=== PATIENT | male | born 1975 | race African-American/Black ===

== ENCOUNTER 2020-01-28 15:07 | Day surgery (SDC) | payer MEDICARE, MEDICAID ==
[2020-01-28] MEDS ORDERED: Acetaminophen 500 MG TAB PO SCH (15:45)
[2020-01-28] MEDS ORDERED: diphenhydrAMINE 25 MG CAP PO SCH (15:45)
[2020-01-28 21:23] VITALS: BP 100/56; TEMP 98.4
[2020-01-29 00:27] LABS: Band 8 % (5-11); Eosinophils 1 % (0-10); Hemoglobin 7.4 g/dL (14.0-18.0); Lymphocytes 55 % (21-51); MDiff Complete? YES; Mean Corpuscular Volume 91.1 fL (78.0-98.0); Mean Platelet Volume 9.7 fL (7.4-10.4); Monocytes 1 % (0-10); Myelocyte 3 % (0-0); Neutrophil 32 % (42-75); Nucleated RBC 96 % (0); Platelet Count 122 thou/uL (130-400); Platelet Morphology Comment Appears Decreased; RBC Distribution Width 13.6 % (11.5-14.5); White Blood Cell (WBC) Count 3.3 thou/uL (4.8-10.8)
== END 2020-01-28 23:40 | disposition home or self-care (01) ==
LOC: ONC/OP 15:07 → ONC 15:09 → ONC/OP 23:40
PROVIDERS: ATTEND Internal Medicine Hematology & Oncology
PROC: 30233N1 Transfusion of Nonautologous Red Blood Cells into Peripheral Vein, Percutaneous Approach (ICD-10-PCS; principal; 2020-01-28)
DX: D64.9 Anemia, unspecified (principal); D69.6 Thrombocytopenia, unspecified; Z79.899 Other long term (current) drug therapy; Z88.1 Allergy status to other antibiotic agents
CPT/HCPCS: 36430; 82728; 85025; 85046; 86850; 86900; 86901; J1642; P9016; Q0163

== ENCOUNTER 2020-02-03 16:15 | Inpatient (IN) | payer MEDICARE, MEDICAID, OTHER ==
--- NOTE | 2020-02-03 17:50 | RAD ---
Chest AP view INDICATION: History of low blood count COMPARISON: Prior exam dated January 24, 2017 FINDINGS: Lungs: The lungs are clear Cardiac silhouette: There is persistent moderate to prominent cardiomegaly. Pulmonary vasculature: Normal Pleural spaces: No pleural effusion or pneumothorax is demonstrated. Upper abdomen: No abnormality seen. Osseous structures: Diffuse osseous sclerosis is stable. Thoracolumbar scoliosis is stable. Additional findings: There has been interval placement of a left subclavian chest wall port. Right I J catheter has been removed. IMPRESSION: No acute cardiopulmonary abnormality. Stable chronic findings as above.
[2020-02-03 18:34] LABS: INR-International Normal Ratio 1.8; PTT 38.5 sec (22.9-36.1); Prothrombin Time 21.2 sec (12.0-14.7)
[2020-02-03 18:44] LABS: Hemoglobin 6.6 g/dL (14.0-18.0); Mean Corpuscular HGB CONC 31.7 g/dL (32.0-36.0); Mean Corpuscular Hemoglobin 29.1 pg (27.0-31.0); Mean Corpuscular Volume 91.7 fL (78.0-98.0); Mean Platelet Volume 11.3 fL (7.4-10.4); Platelet Count 102 thou/uL (130-400); RBC Distribution Width 14.5 % (11.5-14.5); Red Blood Cell (RBC) Count 2.26 mill/uL (4.70-6.10)
[2020-02-03 18:49] LABS: ALT (SGPT) 32 U/L (8-55); AST (SGOT) 404 U/L (5-34); Alkaline Phosphatase 149 U/L (40-110); Anion Gap 20 mmol/L (10-20); BUN (Urea Nitrogen) 37 mg/dL (8.9-20.6); Bilirubin, Total 2.5 mg/dL (0.2-1.2); CK (CPK) 277 U/L (30-200); Calc. Creatinine Clearance 0 mL/min (70-130); Calcium 7.9 mg/dL (7.8-10.44); Carbon Dioxide 14 mmol/L (22-29); Chloride 104 mmol/L (98-107); Estimated GFR-MDRD 21; Globulin 3.4 g/dL (2.4-3.5); Glucose 84 mg/dL (70-105); Lipase 54 U/L (8-78); Protein, Total 6.4 g/dL (6.0-8.3); Sodium 134 mmol/L (136-145)
[2020-02-03 19:09] LABS: White Blood Cell (WBC) Count 3.8 thou/uL (4.8-10.8)
[2020-02-03 19:14] LABS: Band 13 % (5-11); Differential Comment Plasma-like Cell(s); Large Platelets SLIGHT; Lymphocytes 47 % (21-51); MDiff Complete? YES; Metamyelocyte 1 % (0-0); Monocytes 8 % (0-10); Myelocyte 2 % (0-0); Neutrophil 23 % (42-75); Nucleated RBC 86 % (0); Ovalocytes SLIGHT = 2-5 cells (100X) (0-1/hpf); Platelet Morphology Comment Appears Decreased; Polychromasia SLIGHT = 2-3 cells (100X) (0-2/hpf); Reactive Lymphocytes 4 % (0-10); Reflex for Review?? NO; Schistocytes SLIGHT = 2-5 cells (100X) (0-1/hpf); Sickle Cells SLIGHT = 1-5 cells (100X) (None Seen)
[2020-02-03] MEDS ORDERED: Fentanyl 100 MCG/2 ML VIAL ONE (19:26)
--- NOTE | 2020-02-03 19:42 | PDOC.FPRHP ---
- History of Present Illness Chief Complaint: Symptomatic Anemia History of Present Illness: Licha Jimenez is a 45 year old M with a PMH of sickle cell disease who presented to the ED for decreasing blood counts. He was recently diagnosed with parvovirus. He has needed 3 blood transfusions over the last month. His lowest his hemoglobin has been getting is around 5.5. States that he has been getting out of breath and having no energy. Endorsed joint pains. Denies any fever, chills, headaches, chest pain, PND, orthopnea, palpitations, muscle pain , n/v, abdominal pain. States that what he is feeling now is not what his previous sickle cell crises have felt like. States that he has small pain in right knee and left hip but it is not severe. These pains have been present for the last two weeks. He has a port placed for his sickle cell disease due to difficult access. Last hospitalization from pain crisis was almost 3 years ago. He has been adherent to his medication regimen for sickle cell disease. States that he has not had an appetite for the last 1.5 wks and he has put himself on a liquid diet. He was taken off hydroxyurea because it was making his WBC count low. His capsule machine operator has been monitoring those counts. Customs Brokerage Manager: Dr. Dinh ED Course: transfused 2 U pRBC's, 2 L NS - Allergies/Adverse Reactions Allergies Allergy/AdvReac Type Severity Reaction Status Date / Time clindamycin Allergy Verified 02/03/20 21:44 - Home Medications Medication Instructions Recorded Confirmed Type Folic Acid [Folvite] 1 mg PO DAILY 09/03/13 02/03/20 History Morphine Sulfate [Morphine Sulfate 15 mg PO Q1HR PRN 09/03/13 02/03/20 History ER] Morphine Sulfate [Morphine Sulfate 60 mg PO Q8HR 09/03/13 02/03/20 History ER] Pantoprazole [Protonix] 40 mg PO DAILY 05/02/14 02/03/20 History Losartan [Cozaar] 25 mg PO DAILY 02/03/20 02/03/20 History - History PMHx: Sickle cell disease, CHF, GERD, recent diagnosis of parvovirus, hx of SBO PSHx: Cholecystectomy, appendectomy, hernia repair, ex lap at 11 yrs of age FHx: DM2, HTN Social: denies alcohol, smoking, drug use, with children, live in [facility] on vaccines - Review of Systems General: reports: fatigue. denies: fever/chills, weight/appetite/sleep changes Eyes: denies: eye pain, vision changes ENT: denies: nasal congestion, rhinorrhea Respiratory: reports: shortness of breath, exercise intolerance. denies: cough , congestion Cardiovascular: denies: chest pain, palpitation, edema, paroxysmal nocturnal dyspnea, orthopnea Gastrointestinal: denies: nausea, vomiting, diarrhea, abdominal pain, GI bleeding Genitourinary: denies: dysuria, polyuria Skin: denies: rashes, lesions Musculoskeletal: reports: pain, tenderness. denies: stiffness, swelling Neurological: denies: syncope, seizure, weakness Psychological: denies: anxiety, depression - Vital signs BP: 100/58 HR: 114 RR: 18 Tmax: 99.9 Pox: 94% on RA Wt: 82.5 kg - Physical Exam Constitutional: NAD, awake, alert and oriented, well developed HEENT: normocephalic and atraumatic, PERRLA, EOMI, grossly normal vision, grossly normal hearing, MMM Neck: supple, FROM Heart: normal S1/S2, no murmurs/rubs/gallops, pulses present -Heart: tachycardic, regular rhythm Lungs: CTAB, no respiratory distress, good air movement, no rales/rhonchi, no wheezing, no retractions Abdomen: soft, non-tender, bowel sounds present, no masses/distention Musculoskeletal: normal structure, normal tone, ROM grossly normal Neurological: no focal deficit, CN II-XII intact Skin: no rash/lesions, good turgor Heme/Lymphatic: no unusual bruising or bleeding, no purpura, no petechia Psychiatric: normal mood and affect, good judgment and insight, intact recent and remote memory FMR H&P: Results - Labs Result Diagrams: 02/05/20 04:30 02/05/20 03:30 Lab results: WBC 3.8 thou/uL (4.8-10.8) L 02/03/20 17:40 Hgb 6.6 g/dL (14.0-18.0) L 02/03/20 17:40 Hct 20.7 % (42.0-52.0) L 02/03/20 17:40 MCV 91.7 fL (78.0-98.0) 02/03/20 17:40 Plt Count 102 thou/uL (130-400) L 02/03/20 17:40 Band Neuts % (Manual) 13 % (5-11) H 02/03/20 17:40 Sodium 134 mmol/L (136-145) L 02/03/20 16:25 Potassium 4.0 mmol/L (3.5-5.1) 02/03/20 16:25 Chloride 104 mmol/L (98-107) 02/03/20 16:25 Carbon Dioxide 14 mmol/L (22-29) L 02/03/20 16:25 BUN 37 mg/dL (8.9-20.6) H 02/03/20 16:25 Creatinine 3.85 mg/dL (0.7-1.3) H 02/03/20 16:25 Glucose 84 mg/dL (70-105) 02/03/20 16:25 Lactic Acid 3.0 mmol/L (0.5-2.2) H 02/03/20 16:33 Calcium 7.9 mg/dL (7.8-10.44) 02/03/20 16:25 Total Bilirubin 2.5 mg/dL (0.2-1.2) H 02/03/20 16:25 AST 404 U/L (5-34) H 02/03/20 16:25 ALT 32 U/L (8-55) 02/03/20 16:25 Alkaline Phosphatase 149 U/L (40-110) H 02/03/20 16:25 Creatine Kinase 277 U/L (30-200) H 02/03/20 16:25 B-Natriuretic Peptide 65.7 pg/mL (0-100) 02/03/20 17:40 Serum Total Protein 6.4 g/dL (6.0-8.3) 02/03/20 16:25 Albumin 3.0 g/dL (3.5-5.0) L 02/03/20 16:25 Lipase 54 U/L (8-78) 02/03/20 16:25 - EKG Interpretation EKG: Sinus tachycardia, QT 316 - Radiology Interpretation Chest x-ray Status: image reviewed by me, report reviewed by me Additional comment: no acute abnormalities FMR H&P: A/P - Problem List (1) Thrombocytopenia Current Visit: Yes Status: Acute Code(s): D69.6 - THROMBOCYTOPENIA, UNSPECIFIED (2) Acute kidney injury Current Visit: Yes Status: Acute Code(s): N17.9 - ACUTE KIDNEY FAILURE, UNSPECIFIED (3) Lactic acidosis Current Visit: Yes Status: Acute Code(s): E87.2 - ACIDOSIS (4) Parvovirus B19 infection Current Visit: Yes Status: Acute Code(s): B34.3 - PARVOVIRUS INFECTION, UNSPECIFIED (5) Pancytopenia Current Visit: No Status: Acute Code(s): D61.818 - OTHER PANCYTOPENIA (6) Sickle cell disease Current Visit: No Status: Chronic Code(s): D57.1 - SICKLE-CELL DISEASE WITHOUT CRISIS Qualifiers: (7) Symptomatic anemia Current Visit: Yes Status: Acute Code(s): D64.9 - ANEMIA, UNSPECIFIED - Plan Pt is a 45 yo male who presents with symptomatic anemia: # Symptomatic Anemia in the setting of parvovirus, sickle cell - transfused 2 U on 02/02, pending repeat H/H - repeat am CBC - Discuss case with Dr. Dinh in the am - monitor BP's # Parvovirus - discuss case with Dr. Dinh # BRENDA on CKD Unsure pt's baseline. Creatinine 3.85. Monitor for resolution with fluids. # Thrombocytopenia - monitor # Leukopenia - monitor, pt taken off of hydroxurea due to low WBC # Elevated Bili, AST - likely secondary to sickle cell disease # Arthalgias - likely secondary to parvovirus. # GERD - continue home meds # Hx of HF - monitor for decompensation w/ fluids, transfusion - continue home meds Dispo: Admit to inpt IMCU for soft BP's in setting of symptomatic anemia Code: Full Diet: HH VTE: SCDs Fluids: SL FMR H&P: Upper Level - Plan Date/Time: 02/03/201938 Silverio Herrera MD, have evaluated this patient and agree with findings/plan as outlined by chemist intern resident. Pertinent changes/additions are listed here. Licha Jimenez is a 45 year old M with a PMH of SCD who presented to the ED for decreasing blood counts, decreased energy and VIDES. Recently diagnosed with parvovirus by Customs Brokerage Manager, Dr. Dinh and has had 3 blood transfusions over the last month. States that he is having some joint pain but states that it is normally far more painful when he is having a crisis, last hospitalization for crisis was about 3 years ago. It the ED, his hg was 6.6, WBC 3.8, Platelets 102. CXR was negative. Lactic acid 3.0. CK 277. In the ED, BP was 100/58, HR 114, RR 18, O2 sat 96 on RA. He was given 2 U pRBC and 2 L NS in ED. Pt is being admitted for symptomatic anemia in setting of SCD and parvovirus. Pt will get 2 U pRBC and we will trend H/H and BPs. Will notify Dr. Dinh in the AM. Cr was elevated at 3.85. Will continue to monitor after transfusions and fluids given. Will work up further if no improvement. Will continue home pain regimen with IV morphine for breakthrough pain. Please see chemist intern note above for full H&P, which I have reviewed and agree with. Addendum - Attending - Attending Attestation Date/Time: 02/05/20 [id number] I personally evaluated the patient and discussed the management with Dr. Machuca on admission 02/03/20. I agree with the History, Examination, Assessment and Plan documented above with any addition or exceptions noted below. 45 y.o BM with h/o Sickle cell disease, CHF, GERD, recent diagnosis of parvovirus, hx of SBO here with H&H drop with hypotension and tachycardia, responsive to IVF and transfusion of PRBC's. SBP's were in 80's on presentation and salud to 100's after 1UPRBC's, HR improved from 130's to 110's. Will transfuse second unit, hydrate generously and provide analgesia for moderate MS pain in back and thighs. Pt. has had complicated course recently, requiring multiple transfusions. Dr. Dinh is in the process of evaluating, will consult in a.m.
[2020-02-03 19:55] LABS: Bacteria/HPF None Seen HPF (None Seen); Bilirubin 1+ (Negative); Blood, Urine Negative (Negative); Clarity Turbid (Clear); Glucose, Urine (Dipstick) Normal (Negative); Leukocyte Negative Leu/uL (Negative); Nitrite Negative (Negative); Protein, Urine (Dipstick) 70 mg/dL (Neg-Trace); RBC/HPF 0-3 HPF (0-3); Urobilinogen 12 mg/dL (Less than 2)
[2020-02-03] MEDS ORDERED: Ondansetron ODT 4 MG TAB SL PRN (21:17)
[2020-02-03] MEDS ORDERED: Ondansetron PF 4 MG/2 ML Vial IVP PRN (21:17)
[2020-02-03 21:37] VITALS: BMI 30.7
[2020-02-03 22:31] LABS: Lactic Acid 2.1 mmol/L (0.5-2.2)
[2020-02-03] MEDS: Acetaminophen 325 MG TAB PO PRN (22:46)
[2020-02-03] MEDS ORDERED: MORPHINE SULFATE 15 MG PO PRN (23:45)
[2020-02-04] MEDS: Morphine 4 MG/ML VIAL SLOW IVP PRN ×5 (01:12→22:53)
[2020-02-04] MEDS: Morphine ER 30 MG TAB PO SCH ×3 (05:06→21:43)
[2020-02-04 05:42] LABS: Anion Gap 14 mmol/L (10-20); BUN (Urea Nitrogen) 39 mg/dL (8.9-20.6); Calc. Creatinine Clearance 35 mL/min (70-130); Calcium 7.7 mg/dL (7.8-10.44); Carbon Dioxide 20 mmol/L (22-29); Chloride 105 mmol/L (98-107); Estimated GFR-MDRD 25; Glucose 90 mg/dL (70-105); Potassium 3.8 mmol/L (3.5-5.1); Sodium 135 mmol/L (136-145)
--- NOTE | 2020-02-04 05:54 | PDOC.FM ---
- Subjective Subjective: Pt notes sacral and right hip pain this morning. States not as severe as he has had in the past. Feels less SOB and fatigued since transfusion but does still note some mild dyspnea. Requested that I reach out to Dr. Dinh. Not currently on any sickle cell regimen due to previous complications on hydroxyurea. - Objective Vital Signs & Weight: Vital Signs (12 hours) Temp Pulse Resp BP Pulse Ox 02/04/20 03:35 99.4 F 02/04/20 01:07 98.2 F 02/03/20 23:46 98.7 F 02/03/20 22:50 98.6 F 119 H 18 103/56 L 100 02/03/20 21:35 98.4 F 02/03/20 21:30 100 Weight Weight 86.239 kg Most Recent Monitor Data Heart Rate from ECG 105 NIBP 97/61 NIBP BP-Mean 73 Respiration from ECG 26 SpO2 100 I&O: 02/02/20 02/03/20 02/04/20 06:59 06:59 06:59 Intake Total 830 Output Total 250 Balance 580 Result Diagrams: 02/05/20 04:30 02/05/20 08:47 Phys Exam - Physical Examination Constitutional: NAD HEENT: moist MMs, sclera anicteric Neck: full ROM Respiratory: clear to auscultation bilateral (short inspiratory phase) Cardiovascular: RRR Gastrointestinal: soft, non-tender liver palpable below Musculoskeletal: no edema, pulses present Neurological: non-focal, moves all 4 limbs Psychiatric: normal affect, A&O x 3 Skin: no rash Dx/Plan - Plan Plan: Symptomatic Anemia in the setting of parvovirus, sickle cell - Hgb on arrival was 6.6 and was transfused 2 u PRBC last night - Repeat this morning was 8.4 - Retic index hypoproliferative at 0.26 - Will continue to trend - Discuss case with Dr. Dinh in the am - Monitor BP's - Was parvovirus positive on IgG - Concern for chronic parvo, will attempt parvo PCR test - If pt has active parvo infection may benefit from IVIG Pancytopenia - Likely 2/2 bone marrow suppression Pre-transfusion levels - WBC: 3.8 - Hgb: 6.6 - Plt: 102 - Will continue to monitor - Likely bone marrow suppression 2/2 to parvovirus and chronic consumption from sickle cell - Had marrow tap this year that was non-specific - In setting of pancytopenia and hypoproliferation there is concern for development of aplastic crisis BRENDA vs CKD - Last known baseline Cr: 1.1 in 2018 - Cr trend: 3.85 -> 3.27 - 2L in ED and 2 u PRBC, IVF LR @ 120 Thrombocytopenia - Will need to r/o DIC - Fibrinogen and D-dimer - Monitor as above Leukopenia - Monitor as above, pt taken off of hydroxurea due to low WBC Elevated Bili, AST - Likely secondary to sickle cell disease - chronic RBC lysis Arthalgias - Likely secondary to parvovirus. GERD - continue home meds Hx of HF - Monitor for volume overload associated with fluids/transfusions - Continue home meds Code: Full Diet: HH VTE: SCDs Fluids: SL Dispo: IMCU inpt for blood count monitoring and borderline blood pressures on admission. Will trend labs and replace as cell counts indicate. Continue further workup to rule out other causes or newly developing problems associated with current pancytopenia. ELOS >48hr Addendum - Attending - Attending Attestation Date/Time: 02/05/201936 I personally evaluated the patient and discussed the management with Dr. Morris on 02/03 I agree with the History, Examination, Assessment and Plan documented above with any addition or exceptions noted below- Patient without complaints. Pain well controlled. Afebrile VSS. A/P: 1) Symptomatic anemia- continue transfusion ; recheck H/H after transfusion. Hematology consulted for further recommendations. 2) Sickle cell anemia with mild crisis- continue IVF and blood transfusions. 3) BRENDA with CKD - continue to monitor.
[2020-02-04 06:31] LABS: Band 7 % (5-11); Eosinophils 2 % (0-10); Hemoglobin 8.4 g/dL (14.0-18.0); Hypochromia SLIGHT = 6-15 cells (100X) (0-5/hpf); Lymphocytes 48 % (21-51); MDiff Complete? YES; Mean Corpuscular HGB CONC 34.1 g/dL (32.0-36.0); Mean Corpuscular Hemoglobin 30.2 pg (27.0-31.0); Mean Corpuscular Volume 88.4 fL (78.0-98.0); Mean Platelet Volume 12.2 fL (7.4-10.4); Microcytosis SLIGHT = 6-15 cells (100X) (0-5/hpf); Monocytes 10 % (0-10); Neutrophil 33 % (42-75); Nucleated RBC 51 % (0); Platelet Count 90 thou/uL (130-400); Platelet Morphology Comment Appears Decreased; RBC Distribution Width 13.8 % (11.5-14.5); Red Blood Cell (RBC) Count 2.77 mill/uL (4.70-6.10); White Blood Cell (WBC) Count 7.1 thou/uL (4.8-10.8)
[2020-02-04 07:25] LABS: Reticulocyte Count 0.9 % (0.5-1.5)
[2020-02-04 07:55] LABS: ALT (SGPT) 28 U/L (8-55); AST (SGOT) 302 U/L (5-34); Albumin 2.8 g/dL (3.5-5.0); Alkaline Phosphatase 134 U/L (40-110); Bilirubin, Direct 1.9 mg/dL (0.1-0.3); Bilirubin, Total 2.8 mg/dL (0.2-1.2); Protein, Total 6.1 g/dL (6.0-8.3)
[2020-02-04] MEDS ORDERED: Folic Acid 1 MG TAB PO SCH (09:00)
[2020-02-04] MEDS ORDERED: Losartan 25 MG TAB PO SCH (09:00)
[2020-02-04] MEDS: Lactated Ringer's 1,000 ML IV SCH ×2 (11:01→18:20)
[2020-02-04] MEDS: Acetaminophen 325 MG TAB PO PRN (15:31)
[2020-02-04 16:01] LABS: Reference Lab Name LABCORP
[2020-02-04 16:02] LABS: Ref Lab Test Ordered PARVOVIRUS PCR
[2020-02-04] MEDS ORDERED: Vancomycin HCl 1 GM in Sodium Chloride 0.9% 250 ML 250 ML IVPB SCH (17:30)
[2020-02-04] MEDS ORDERED: Lactated Ringer's 1,000 ML IV SCH (17:45)
--- NOTE | 2020-02-04 18:12 | CON ---
DATE OF CONSULTATION: REASON FOR CONSULTATION: Sickle cell anemia. HISTORY OF PRESENT ILLNESS: Mr. Jimenez is a pleasant 45-year-old gentleman with a history of sickle cell anemia. He is followed by Dr. Dinh in the office. He is currently on hydroxyurea 1000 mg b.i.d. He has also intermittently been on Jadenu for elevated ferritin. He was seen by Dr. Dinh last week on January 27 for followup after recent hospitalization. He was transfused a total of 5 units during that hospitalization in December. He had had a CT of the abdomen that showed hepatomegaly and nonspecific upper abdominal adenopathy. December studies also showed increased transaminases and a negative hepatitis panel. He had a CBC drawn in our clinic, which showed hemoglobin of 5.5 with a negligible retic count. He was transfused. His parvovirus serologies were positive for IgG and negative for IgM. His ferritin was 2800. He was to follow up next week, but began to have increasing shortness of breath and weakness. He had joint pain, but no fever, chills or chest pain. He presented to the emergency room for evaluation. His hemoglobin was 6.6 on admission. He was transfused 2 units. His retic count again was 0.9. He is given IV fluids, oxygen, and pain medication. He also had an elevated creatinine of 3.27. He is feeling somewhat better, but continues to be extremely weak. PAST MEDICAL HISTORY: 1. Sickle cell anemia. 2. Congestive heart failure. 3. GERD. 4. Recent diagnosis of parvovirus. PAST SURGICAL HISTORY: 1. Cholecystectomy. 2. Appendectomy. 3. Hernia repair. ALLERGIES: NO KNOWN DRUG ALLERGIES. HOME MEDICATIONS: 1. Folic acid. 2. Hydroxyurea. 3. Losartan. 4. Morphine 15 mg IR. 5. Protonix. FAMILY HISTORY: He has 2 children, both with sickle cell trait. SOCIAL HISTORY: Single. Lives with his mother, 2 children. No alcohol, tobacco or illicit drug use. REVIEW OF SYSTEMS: Positive for fatigue and occasional shortness of breath, otherwise negative. PHYSICAL EXAMINATION: VITAL SIGNS: Temperature 99.0, heart rate 116, blood pressure 108/66, and respiratory rate 25. He is 100% on 2 L. GENERAL: A well-developed, well-nourished male, in no acute distress. HEENT: Normocephalic and atraumatic. Pupils are equal and reactive to light. NECK: Supple. CV: Regular rate and rhythm. He is tachycardic. LUNGS: Clear. ABDOMEN: He has right upper quadrant fullness secondary to hepatomegaly. EXTREMITIES: No clubbing or cyanosis. SKIN: No rash. NEUROLOGICAL: Nonfocal. PERTINENT LABORATORY DATA AND X-RAYS: Current WBCs 7.1, hemoglobin 8.4, hematocrit 24.5, platelet count 90,000, 33% neutrophils, and 48% lymphocytes. PT is 21.2, INR is 1.8, and PTT 38.5. Sodium is 135, potassium is 3.8, chloride is 105, CO2 is 20, BUN is 39, creatinine is 3.27, lactic acid is 2.1, and calcium 7.7. Bilirubin 2.8, AST is 302, ALT is 28, and alk phos is 134. Ferritin is 7000. Serum total protein is 6.1, albumin 2.3, and globulin 2.8. ASSESSMENT: 1. Sickle cell anemia with increased requirement for transfusion. 2. New diagnosis of parvovirus. 3. Hepatomegaly. DISCUSSION: The patient has been transfused 2 units and his hemoglobin has improved. His retic count remains negligible. He has been started on IV fluids, oxygen and pain medicine for acute pain crisis. Parvovirus PCR has been ordered. The patient will receive IVIG to improve his symptoms. He will likely start Jadenu in the outpatient setting as his ferritin is continuing to climb due to his increased need for transfusions. Case has been discussed in detail with Dr. Dinh. Thank you for the consult. Job ID: [id number]
[2020-02-04 19:13] LABS: Creatinine, Urine 203.13 mg/dL (63-166)
[2020-02-04] MEDS ORDERED: Cefepime 2 GM in Sodium Chloride 0.9% 100 ML IVPB SCH (20:00)
[2020-02-04 20:03] LABS: Hemoglobin 9.2 g/dL (14.0-18.0)
[2020-02-04] MEDS ORDERED: Vancomycin HCl 1.75 GM in Sodium Chloride 0.9% 500 ML IVPB SCH (21:00)
--- NOTE | 2020-02-05 00:53 | CON ---
DATE OF CONSULTATION: 02/04/2020 REASON FOR CONSULTATION: Possible parvovirus infection. HISTORY OF PRESENT ILLNESS: A 45-year-old, who is known to me from prior visit. I saw him twice in 2016. The first time was in December when he presented with a history of sickle cell disease, at that time, on hydroxyurea. He also had iron overload preventive treatment and he was still having crisis on a regular basis, sometimes requiring blood transfusion. He developed fever and chest CT showed multiple areas of infiltrates, somewhat wedge-shaped densities as well, and he had Klaudia isolated from the port. The port was exchanged and I have not seen him since. Now, he presents with weakness, tachycardia, worsening anemia. He does not have headaches. He has mild dyspnea but no cough. No chest pain. He has pain in the right sacroiliac region. No abdominal pain. He is voiding without difficulty. No diarrhea. No bleeding. He has some moderate pain in the right knee and the left hip. Those are usual areas when he has sickle cell crisis. PAST MEDICAL HISTORY: Sickle cell anemia with multiple crisis; intolerance to hydroxyurea due to neutropenia; port access infection, which led to port replacement, infection was due to Klaudia species. He has had appendectomy and cholecystectomy in the past. Has had small bowel obstruction due to adhesions. SOCIAL HISTORY: Lives in [place]. Does not smoke. Drinks rarely. FAMILY HISTORY: Not significant. MEDICATION LIST: At the moment, he is on, 1. Folvite. 2. Electrolyte solution. 3. Cozaar. 4. Pain medication. PHYSICAL EXAMINATION: VITAL SIGNS: Show T-max 100.8, blood pressure 114/68, pulse 128, respirations 21 to 35, and O2 saturation is 100%. GENERAL: He appears chronically ill. He is oriented, but a little bit drowsy. The port site is accessed, but there are no inflammatory changes. He is voiding in the toilet. He has no lymphadenopathy. No skin lesions. HEENT: His ocular movements are conjugate. Pale conjunctivae. Oral cavity is not remarkable. NECK: Supple. LUNGS: Symmetric. Clear breath sounds. HEART: S1 and S2. Regular rate. No S3 or S4. ABDOMEN: Soft, not distended or tender. No ascites. No bladder distention. MUSCULOSKELETAL: He has some tenderness in the right SI region. The right knee is tender but not swollen. There is no effusion noted. The left hip has good range of motion. He is oriented. Follows commands. Plantar responses are flexor. No edema. LABORATORY STUDIES: White cell count is 3.8 and now 7.1; hemoglobin was 6.6 and now 8.4, probably after transfusion; and the platelets were at 102 and now 90,000, differential with 23% neutrophils, 13% bands, the bands are down to 7, myelocytes were 2%, metamyelocytes 1%, nucleated RBCs were 86 and 51. INR 1.8. Creatinine in 2018 was 1.1 and now it is up to 3.85, it is not clear how old this deterioration in renal function is. His creatinine in [facility] in [place] was 1.08 on 01/07/2020. The hemoglobin has ranged from 6.6 to 7.7 in December 2019. So, there is a clear deterioration of his renal function, which appears to be acute. His ferritin is very high at 7000, bilirubin 1.9, AST 302. Two port samples for blood cultures are pending at the moment and imaging includes just the chest x-ray with no acute cardiopulmonary abnormality noted. The patient had parvovirus IgG positive in 2017 and he had repeat parvovirus IgM negative and IgG positive on 01/02/2020. ASSESSMENT: 1. Sickle cell anemia. 2. Iron overload. 3. Possible chronic liver disease due to iron overload. 4. Inability to take hydroxyurea due to neutropenia. 5. Worsening anemia and concern with Parvovirus viral infection. DISCUSSION: The patient has IgG positive but negative IgM parvovirus antibodies. This is more consistent with prior resolved infection rather than chronic Parvovirus infection. Prevalence of Parvovirus IgG antibodies in the general populations varies from 15% in children to 30-60% in adults and up to 85% in the elderly population. We will go ahead and submit parvovirus DNA PCR. He could be colonized again and the port might explain his clinical deterioration. He does have renal insufficiency, may be septic. I would advise broad-spectrum antimicrobial therapy until we clarify this situation. Job ID: [id number] [facility]ITALNickolas
[2020-02-05] MEDS ORDERED: Heparin 5,000 UNITS/ML VIAL SC SCH ×2 (01:15→09:00)
[2020-02-05] MEDS: Lactated Ringer's 1,000 ML IV SCH (01:39)
[2020-02-05] MEDS ORDERED: Lactated Ringer's 500 ML IV SCH (01:45)
[2020-02-05 04:13] VITALS: TEMP 98.6
[2020-02-05 04:56] LABS: Anion Gap 28 mmol/L (10-20); BUN (Urea Nitrogen) 52 mg/dL (8.9-20.6); Calc. Creatinine Clearance 25 mL/min (70-130); Calcium 7.8 mg/dL (7.8-10.44); Chloride 106 mmol/L (98-107); Estimated GFR-MDRD 17; Glucose 68 mg/dL (70-105); Potassium 5.6 mmol/L (3.5-5.1); Sodium 136 mmol/L (136-145)
[2020-02-05 05:01] LABS: Carbon Dioxide 8 mmol/L (22-29)
[2020-02-05 05:12] LABS: Actual Bicarbonate (HCO3a) 5.7 mEq/L (22-28); Base Excess (BEa) -22.5 mEq/L (-2.0 to +3.0); Calcium, Ionized (arterial) 1.07 mmol/L (1.12-1.30); Carboxyhemoglobin (COHb) 1.4 gm% (0.0-3.0); Hemoglobin (Hb) 7.1 g/dL (14.0-18.0); O2 Tension (PaO2), arterial 107.4 mmHg (80.0-100.0); Potassium - ABG Lab 5.92 mmol/L (3.70-5.30)
[2020-02-05 05:14] LABS: Band 4 % (5-11); Eosinophils 1 % (0-10); Hemoglobin 7.9 g/dL (14.0-18.0); Lymphocytes 71 % (21-51); MDiff Complete? YES; Mean Corpuscular HGB CONC 33.2 g/dL (32.0-36.0); Mean Corpuscular Hemoglobin 30.8 pg (27.0-31.0); Mean Corpuscular Volume 92.5 fL (78.0-98.0); Mean Platelet Volume 7.1 fL (7.4-10.4); Microcytosis SLIGHT = 6-15 cells (100X) (0-5/hpf); Monocytes 7 % (0-10); Neutrophil 11 % (42-75); Nucleated RBC 11 % (0); Platelet Count 67 thou/uL (130-400); Platelet Morphology Comment Appears Decreased; RBC Distribution Width 14.5 % (11.5-14.5); Reactive Lymphocytes 6 % (0-10); Red Blood Cell (RBC) Count 2.56 mill/uL (4.70-6.10); White Blood Cell (WBC) Count 18.8 thou/uL (4.8-10.8)
[2020-02-05 05:15] LABS: CO2 Tension 19.8 mmHg (35.0-45.0); pH, Arterial 7.08 (7.35-7.45)
[2020-02-05 05:16] LABS: Puncture Site RRA
[2020-02-05] MEDS ORDERED: Sodium Bicarb 50 MEQ/50 ML Abboject 8.4% SYRINGE ONE ×2 (05:31→11:16)
[2020-02-05 05:56] LABS: Lactic Acid 14.8 mmol/L (0.5-2.2)
[2020-02-05] MEDS ORDERED: Sodium Chloride 0.9% 1,000 ML IV SCH (06:00)
[2020-02-05] MEDS ORDERED: Lactated Ringer's 1,000 ML IV SCH (06:00)
[2020-02-05 06:04] LABS: Troponin I 1.154 ng/mL (< 0.028)
--- NOTE | 2020-02-05 06:25 | PDOC.FM ---
- Subjective Subjective: Pt was awake but listless, gargled respirations, not following commands. Unable to obtain interval hx from pt. Last night had developed hypotension, worsening sickel cell pain, abdominal pain, and had a bloody bm per nursing staff. His tachycardia and tachypnea worsened and he developed hyoptension. ABG showed severe lactic metabolic acidosis. So he received 2.5L bolus and an amp of bicarb. Please see event note for remaining interval hx of code blue that ensued. - Objective Vital Signs & Weight: Vital Signs (12 hours) Temp Pulse Ox 02/05/20 04:12 98.6 F 02/04/20 23:37 98.5 F 02/04/20 23:00 95 02/04/20 20:00 95 02/04/20 19:12 99.8 F H Weight Admit Weight 86.239 kg Weight 86.239 kg Most Recent Monitor Data Heart Rate from ECG 140 NIBP 104/46 NIBP BP-Mean 65 Respiration from ECG 35 SpO2 95 I&O: 02/03/20 02/04/20 02/05/20 06:59 06:59 06:59 Intake Total 830 2183 Output Total 250 400 Balance 580 1783 Result Diagrams: 02/05/20 04:30 02/05/20 08:47 Phys Exam - Physical Examination Listless HEENT: moist MMs Not tracking Gasping respirations, tachypneic, poor airway protection sinus tachycardia Not following commands, not withdrawaling from pain, eyes open Dx/Plan - Plan Plan: Symptomatic Anemia in the setting of parvovirus, sickle cell - Developed severe hypotension requiring code blue, intubation, art line, pressers - 2 additional units PRBC ordered - Was parvovirus positive on IgG - Parvo PCR send out pending - Per nursing pt had bloody BM last night - Consider GI consult, repeat coags, may need replacement - If developing severe sickle cell crisis pt may necessitate exchange transfusion - Will discuss with oncology and pulm regarding above Sickle Cell Crisis - As above - Potassium acutely elevated likely from decreased renal function and cell lysis - Lactic acid 14 last night - Will discuss with consultants as above Pancytopenia - Likely 2/2 bone marrow suppression - Likely bone marrow suppression 2/2 to parvovirus and acute sickle crisis Lactic Acid Metabolic Acidosis - Concern for Worsening Sickle Cell Crisis - ABG last night: pH 7.08 \ pCO2 19.8 \ pO2 107.4 \ bicarb 5.7 - Given 5,000 heparin due to concern for SCD crisis - Bolus fluids and bicarb BRENDA - Last known baseline Cr: 1.1 in 2018 - Cr trend: 3.85 -> 3.27 -> 4.61 - IVF LR @ 120, received 1.5L bolus last night, receiving 1L bolus currently - Potassium also rising to 5.6 this morning - Will consult Nephro, Dr. Mckeon, appreciate recs Leukopenia - Dr. Gillis, ID, consulted - Started cefepime and vanc - Pt has hx of port infection with [place] - Cultures pending Elevated Bili, AST - Likely secondary to sickle cell disease - chronic RBC lysis Elevated Ferritin - Likely due to recent hx of recurrent transfusions Arthalgias - Likely secondary to parvovirus. GERD - continue home meds Hx of HF - Monitor for volume overload associated with fluids/transfusions - Continue home meds Code: Full Diet: HH VTE: SCDs Fluids: SL Dispo: CCU inpt. Pt is intubated with art line for MAP monitoring during pressure support. Will discuss need for exchange transfusion with onc and crit care. Consulting nephro regarding worsening of acute renal insufficiency. Addendum - Attending - Attending Attestation Date/Time: 02/05/201940 I personally evaluated the patient and discussed the management with Dr. Morris I agree with the History, Examination, Assessment and Plan documented above with any addition or exceptions noted below- See brief progress note from later in the morning.
[2020-02-05 06:26] LABS: Magnesium 2.2 mg/dL (1.6-2.6); Phosphorus 7.3 mg/dL (2.3-4.7)
--- NOTE | 2020-02-05 06:49 | PDOC.EVN ---
Event Note - Event Note Event Note: Called to pt.'s bedside by residents reporting pt. became acutely distressed with complaint of abdominal pain with hypotension, persistent tachycardia, tachypnea with a reported episode of hematochezia. Pt. had been in NAD with mild pain controlled with analgesic earlier, sitting at bedside and talking on telephone, then had an acute change. ABG--7.08/5.7/107.4/19.8/95.9% on 2LNC 136 5.6 106 8
--- NOTE | 2020-02-05 07:43 | RAD ---
EXAM: Single view of the chest HISTORY: Tachypnea COMPARISON: 02/03/2020 FINDINGS: Single view of the chest shows an enlarged but stable cardiomediastinal silhouette. The Me diport is unchanged in position. There is no evidence of consolidation, mass, or pleural effusion. The bones are unremarkable. IMPRESSION: No evidence of acute cardiopulmonary disease
--- NOTE | 2020-02-05 07:43 | RAD ---
EXAM: Single view of the abdomen HISTORY: Abdominal pain COMPARISON: None FINDINGS: Single view of the abdomen shows a nonspecific, nonobstructive bowel gas pattern. No suspi cious calcifications are seen. The bones are unremarkable. IMPRESSION: Unremarkable exam
[2020-02-05 08:01] LABS: Actual Bicarbonate (HCO3a) 4.6 mEq/L (22-28); Base Excess (BEa) -26.3 mEq/L (-2.0 to +3.0); Calcium, Ionized (arterial) 0.96 mmol/L (1.12-1.30); Carboxyhemoglobin (COHb) 1.3 gm% (0.0-3.0); O2 Tension (PaO2), arterial 311.8 mmHg (80.0-100.0); Potassium - ABG Lab 7.23 mmol/L (3.70-5.30)
[2020-02-05 08:02] LABS: pH, Arterial 6.87 (7.35-7.45)
[2020-02-05 08:03] LABS: Hemoglobin (Hb) 5.7 g/dL (14.0-18.0); Puncture Site RFA
[2020-02-05 08:29] LABS: Actual Bicarbonate (HCO3a) 5.4 mEq/L (22-28); Base Excess (BEa) -23.2 mEq/L (-2.0 to +3.0); Calcium, Ionized (arterial) 0.95 mmol/L (1.12-1.30); Potassium - ABG Lab 6.03 mmol/L (3.70-5.30)
[2020-02-05 08:30] LABS: CO2 Tension 20.6 mmHg (35.0-45.0); O2 Tension (PaO2), arterial 532.1 mmHg (80.0-100.0); pH, Arterial 7.03 (7.35-7.45)
[2020-02-05 08:31] LABS: Hemoglobin (Hb) 5.5 g/dL (14.0-18.0); Puncture Site LFA
[2020-02-05 08:36] VITALS: BP 78/58
[2020-02-05] MEDS ORDERED: Propofol 1,000 MG/100 ML VIAL IV PRN (08:40)
[2020-02-05] MEDS ORDERED: Lorazepam 2 MG/ML VIAL SLOW IVP PRN (08:40)
[2020-02-05] MEDS ORDERED: Morphine 2 MG/ML SYRINGE SLOW IVP PRN (08:40)
[2020-02-05] MEDS ORDERED: Propofol BOLUS 1,000 MG/100 ML VIAL IV PRN (08:40)
[2020-02-05] MEDS ORDERED: Fentanyl BOLUS 250 ML IVPB PRN (08:40)
[2020-02-05] MEDS ORDERED: fentaNYL Citrate/PF 2,000 MCG in Sodium Chloride 0.9% 60 ML IV SCH (08:40)
[2020-02-05] MEDS ORDERED: Sodium Bicarbonate 140 MEQ in Dextrose 5% in Water 1,000 ML IV SCH (08:45)
[2020-02-05] MEDS ORDERED: Ventilator Sedation Protocol 1 EACH FS SCH (08:45)
[2020-02-05] MEDS ORDERED: Pantoprazole 40 MG VIAL IVP SCH (09:00)
[2020-02-05 09:05] LABS: Prothrombin Time 78.9 sec (12.0-14.7)
[2020-02-05 09:19] LABS: BUN (Urea Nitrogen) 52 mg/dL (8.9-20.6); Calc. Creatinine Clearance 24 mL/min (70-130); Calcium 7.4 mg/dL (7.8-10.44); Chloride 106 mmol/L (98-107); Estimated GFR-MDRD 16; Sodium 146 mmol/L (136-145)
[2020-02-05 09:23] LABS: Carbon Dioxide Less than 8 mmol/L (22-29); Glucose 8 mg/dL (70-105); Potassium 6.7 mmol/L (3.5-5.1)
--- NOTE | 2020-02-05 09:25 | OP ---
DATE OF PROCEDURE: 02/05/2020 PROCEDURE: Right femoral central line placement. PREOPERATIVE DIAGNOSIS: Poor IV access. POSTOPERATIVE DIAGNOSIS: Successful right femoral line placement. ANESTHESIA: None. DESCRIPTION OF PROCEDURE: Using sterile prep with chlorhexidine and sterile procedure. A triple-lumen catheter was inserted in the right femoral line via modified Seldinger technique. Arterial line was also attempted in right femoral artery, but could not be passed. The venous line flushed three ports of venous blood and he tolerated the procedure well. PROCEDURE: Left femoral arterial line placement. PREOPERATIVE DIAGNOSIS: Hypotension. POSTOPERATIVE DIAGNOSIS: Hypotension. ANESTHESIA: None. DESCRIPTION OF PROCEDURE: Via the modified Seldinger technique, the left femoral arterial line was placed without difficulty. The ports flushed arterial blood. The patient tolerated the procedure well. Job ID: [id number]
[2020-02-05] MEDS ORDERED: Phytonadione 10 MG in Sodium Chloride 0.9% 50 ML IVPB SCH (09:45)
--- NOTE | 2020-02-05 09:48 | CON ---
DATE OF CONSULTATION: 02/05/2020 This encompasses 120 minutes of critical care nonocclusive time spent in performing procedures on separate operative notes. HISTORY OF THE PRESENT ILLNESS: I was consulted to see this 45-year-old male, who was in the midst of a Code Blue when I arrived. He was initially admitted on the to the Family Medicine Service. His chief complaint at that time was symptomatic anemia and decreasing blood counts. He was also recently diagnosed with parvovirus. Over the last several hours, he developed refractory acidosis. He eventually had a cardiopulmonary arrest. He was probably without pulse for 5 to 10 minutes before regaining pulse after he was intubated by anesthesia. He is currently on mechanical ventilation, but not requiring any sedation. PAST MEDICAL HISTORY: 1. Sickle cell anemia. 2. Congestive heart failure. 3. Gastroesophageal reflux. 4. Parvovirus. 5. Small bowel obstruction. PAST SURGICAL HISTORY: 1. Cholecystectomy. 2. Appendectomy. 3. Hernia repair. 4. Exploratory laparotomy. FAMILY HISTORY: Remarkable for diabetes and hypertension. SOCIAL HISTORY: Nonsmoker. Does not consume alcohol. Does not use illicit drugs. REVIEW OF SYSTEMS: Cannot be obtained as the patient is currently on mechanical ventilation. MEDICATIONS: Prior to admission; 1. Folate. 2. Morphine. 3. Pantoprazole. 4. Losartan. PHYSICAL EXAMINATION: VITAL SIGNS: Blood pressure 117/37, pulse 115, and O2 saturation 100%. Last recorded temperature was 98.6. GENERAL: This patient is obtunded on mechanical ventilation. HEENT: [place] sclerae. Oropharynx with endotracheal tube and orogastric tube in place. NECK: No adenopathy or JVD. LUNGS: Clear anteriorly. CARDIOVASCULAR: S1 and S2. Tachycardic. ABDOMEN: Slightly distended, but soft. Multiple surgical scars present. EXTREMITIES: No clubbing or cyanosis. LABORATORY DATA: White blood cell count 18.8; hemoglobin was initially 7.9, has now fallen to 5.5 on blood gas; and platelet count 67. PH of 7.03, pCO2 of 20, and pO2 of 532 on SIMV rate 28, tidal volume 550, PEEP 5, pressure support 10, and FiO2 of 100%. Sodium 136, potassium 5.6, chloride 106, CO2 of 8, BUN 52, creatinine 4.6, and glucose 68. Lactate 14.8. Troponin 1.15. A chest x-ray from earlier today demonstrates cardiomegaly. He is on MediPort that is in place. He has subtle alveolar infiltrates bilaterally. ASSESSMENT: 1. Status post cardiopulmonary arrest. 2. Likely has some degree of sickle cell crisis, although his oxygenation is rather good. 3. Severe metabolic acidosis. 4. Hyperkalemia secondary to acidosis. PLAN: 1. We will start the patient on a bicarbonate drip. He has received probably 10 amps of bicarbonate while I have been putting lines in performing procedures. 2. Needs transfusion two more units on the way. He may need subsequent units after that. I think transfusion will probably help him more than anything else. I would impress upon the Primary Team to get Hematology involved as I think the patient may require transfer to a different facility for exchange transfusion if he stabilizes. 3. Followup acidosis. 4. Antibiotics per Infectious Disease Service. Job ID: [id number]
[2020-02-05] MEDS ORDERED: Dextrose 50% Abboject 50 ML SYRINGE ONE (10:00)
[2020-02-05] MEDS ORDERED: Calcium Chloride 1 GM/10 ML Abboject SYRINGE ONE (10:00)
[2020-02-05] MEDS ORDERED: EPINEPHrine 1 MG/10 ML Abboject SYRINGE ONE (10:00)
[2020-02-05] MEDS ORDERED: Calcium Chloride 1 GM/10 ML Abboject SYRINGE IVP SCH (10:15)
--- NOTE | 2020-02-05 11:14 | PRG ---
DATE OF SERVICE: 02/05/2020 This patient has continued to spiral down throughout the morning despite aggressive resuscitation. Dialysis about the start around 10:38 when the patient had another asystolic arrest. He received chest compressions, epinephrine and bicarbonate during the code, did not revert from asystole. At this point, I thought further resuscitative efforts were futile and asked the resuscitate team to stop. Job ID: [id number]
--- NOTE | 2020-02-05 12:15 | CON ---
DATE OF CONSULTATION: 02/05/2020 REASON FOR CONSULTATION: Hyperkalemia. TIME OF CONSULTATION: 9 a.m. on February 05, 2020. HISTORY: This was a 45-year-old gentleman, who presented to the hospital on February 02, for symptomatic anemia. I was consulted at 9 o'clock this morning with the patient noted to have a potassium of 6.7 and a bicarb of 8. The patient could give no further history as he was intubated. PAST MEDICAL HISTORY: Significant for sickle cell disease, congestive heart failure, GERD, parvovirus, small bowel obstruction, cholecystectomy, appendectomy, hernia repair, laparotomy. FAMILY HISTORY: Positive for end-stage renal disease. SOCIOECONOMIC HISTORY: Not applicable. REVIEW OF SYSTEMS: Unable to do, the patient was intubated. PHYSICAL EXAMINATION: General: The patient was awake and alert. Vital Signs: Afebrile, pulse 115, breathing at , blood pressure 94/48. HEENT: Head normocephalic and atraumatic. Eyes intact, no ulcers. Nose intact, no ulcers. Ears intact, no ulcers. Neck: Supple. No JVD. Chest: Symmetrical and clear. Cardiovascular: Showed S1 and S2, no rub, no murmur. Gastrointestinal: Abdomen was soft, bowel sounds positive. Extremities: Showed no edema or ulcers. Skin: Showed no rash or petechiae. Musculoskeletal: Showed no joint swelling or stiffness. Genitourinary: Showed Mck[place] present. Neurologic: The patient was intubated and resting. LABORATORY DATA: Sodium 146, potassium 6.7, bicarb 8, creatinine 4.7. ASSESSMENT AND PLAN: 1. Acute kidney injury, multifactorial due to acute tubular necrosis and multiple other etiologies possible. Risks versus benefits of urgent dialysis were discussed with the father and he agreed and surgery was consulted for catheter placement to fix hyperkalemia as well as acidosis and hydration. The prognosis was extremely poor and was discussed with the father. 2. Hyperkalemia. Plan dialysis. Consent was obtained over the phone. Risks versus benefits were explained. 3. Metabolic acidosis, plan dialysis. The case was discussed with the primary team involved in care of this patient. The patient already had a few amps of sodium bicarbonate and was on a bicarbonate drip. At the time of this dictation, the patient was before dialysis could be initiated. Job ID: [id number]
--- NOTE | 2020-02-05 18:01 | EKG ---
Test Reason : Blood Pressure : / mmHG Vent. Rate : 133 BPM Atrial Rate : 133 BPM P-R Int : 124 ms QRS Dur : 080 ms QT Int : 290 ms P-R-T Axes : 043 032 028 degrees QTc Int : 431 ms Sinus tachycardia Otherwise normal ECG When compared with ECG of 03-FEB-2020 16:38, (Unconfirmed) No significant change was found Confirmed by DR. Margarito MCCOY ([id number]) on 02/05/2020 6:01:04 PM Referred By: SINCERE Confirmed By:DR. Margarito MCCOY
--- NOTE | 2020-02-05 18:04 | EKG ---
Test Reason : Blood Pressure : / mmHG Vent. Rate : 123 BPM Atrial Rate : 123 BPM P-R Int : 134 ms QRS Dur : 090 ms QT Int : 322 ms P-R-T Axes : 056 083 -19 degrees QTc Int : 460 ms Sinus tachycardia Nonspecific ST abnormality Abnormal QRS-T angle, consider primary T wave abnormality Abnormal ECG When compared with ECG of 04-FEB-2020 19:24, (Unconfirmed) Inverted T waves have replaced nonspecific T wave abnormality in Inferior leads Confirmed by DR. Margarito MCCOY ([id number]) on 02/05/2020 6:04:32 PM Referred By: TRESSA Confirmed By:DR. Margarito MCCOY
--- NOTE | 2020-02-05 18:46 | PDOC.BPN ---
- Brief Progress Note Late entry- Called to code blue at approximately 10:25 AM. On arrival chest compressions in progress and patient had received 1 dose of epi and 1 dose of bicarbonate. Ventilations and compressions continued with repeat doses of epi at 3-5 minute intervals and additional doses of sodium bicarb. Dose of calcium also given. No pulse re-established throughout this time and cardiac rhythym remained asystole. Code stopped and patient pronounced. Dr. Katz also at bedside and agrees with termination of resuscitative efforts.
[2020-02-05] MEDS ORDERED: Vancomycin HCl 750 MG in Sodium Chloride 0.9% 250 ML 250 ML IVPB SCH (21:00)
--- NOTE | 2020-02-06 04:00 | DIS ---
DATE OF ADMISSION: 02/03/2020 DATE OF DISCHARGE: 02/05/2020 ATTENDING PHYSICIAN: Dr. Carla Love. RESIDENT: Dr. Vishal Morris. DATE OF : 02/05/2020. TIME OF : 1100 hours. CAUSE OF : Mesenteric ischemia secondary to sickle cell crisis. SECONDARY DIAGNOSES: Sickle cell disease, pancytopenia, questionable parvovirus infection, acute renal failure, iron overload. HOSPITAL COURSE: This is a 45-year-old gentleman, who came into the hospital with complaints of fatigue and recurrent symptomatic anemia. The patient stated that a couple of months ago, he was diagnosed with a parvovirus by his oncologist, Dr. Dinh, whom he sees for his sickle cell disease. Since then, he has been requiring transfusions every couple of weeks due to dropping blood counts. The patient notes that he chronically has low blood counts and has experienced pancytopenia. He was discontinued off his hydroxyurea several months ago due to developing neutropenia. Upon admission, the patient was found to have a hemoglobin of 6.6, so he was started on 2 units of packed red blood cells transfusion and received 2 L of normal saline for resuscitation. Following day, the patient's hemoglobin trended up to 8.4 and 9.2, and the patient was feeling much better. The patient remained mildly tachycardic throughout the day, but states that was somewhat chronic for him. Later in the night, the patient developed worsening tachycardia up to the 140s with associated tachypnea. He started to feel nauseated and dizzy and got up to use the bedside commode and experienced a bloody bowel movement. After this, the patient developed hypotension and received 2.5 L of saline bolus that was only minimally responsive to his blood pressures. He was also started of continuous blood products due to his developing sickle crisis and need to reach goal of <50% sickled cells. Due to the tachypnea, the patient had an ABG performed, which showed him to be severely acidotic with a pH of 7.09 and a pCO2 of 19, bicarb of 5.7. Pt received 1 amp of bicarb due to his worsening renal function and creatinine of 4.7. Later in the morning the patient rapidly decompensated with agonal breathing and non-detectable blood pressures. A code blue was called as the pt was being transferred to the CCU (see code record). After intubation and CPR a pulse was recovered with a detectable BP. An arterial line was placed by Dr. Katz for MAP monitoring. Later in the morning the patient coded again (see second code record ) and after adequate trial of resuscitation it was determined futile to continue and resuscitation was discontinued. In the light of the patient's developing sickle cell crisis and recent bloody bowel movement with severely elevated lactic acid level it was presumed the patient was developing mesenteric ischemia in addition to likely numerous other areas of vaso-occlusive disease. Job ID: [id number] [facility]
[2020-02-06 14:26] LABS: SARS-CoV-2 MS2 Positive; SARS-CoV-2 N Gene Negative; SARS-CoV-2 S Gene Negative; SARS-CoV-2 orf1ab Negative
--- NOTE | 2020-02-07 14:52 | EKG ---
Test Reason : Blood Pressure : / mmHG Vent. Rate : 128 BPM Atrial Rate : 128 BPM P-R Int : 128 ms QRS Dur : 084 ms QT Int : 316 ms P-R-T Axes : 041 020 022 degrees QTc Int : 461 ms Sinus tachycardia Otherwise normal ECG Confirmed by BI AYALA, CHELLE ([id number]), editorial project manager SOPHY ALMAZAN ([id number]) on 02/07/2020 2:52:24 PM Referred By: Confirmed By:CHELLE PAT MD
== END 2020-02-05 11:00 | disposition expired | DRG 811 ==
LOC: ERS 16:15 → IMCU/EMU 20:00 → CCU 02-05 07:13
PROVIDERS: ADMIT Family Medicine; ATTEND Family Medicine
PROC: 30233N1 Transfusion of Nonautologous Red Blood Cells into Peripheral Vein, Percutaneous Approach (ICD-10-PCS; 2020-02-03)
PROC: 06HY33Z Insertion of Infusion Device into Lower Vein, Percutaneous Approach (ICD-10-PCS; principal; 2020-02-05)
PROC: 5A12012 Performance of Cardiac Output, Single, Manual (ICD-10-PCS; 2020-02-05)
PROC: 0BH17EZ Insertion of Endotracheal Airway into Trachea, Via Natural or Artificial Opening (ICD-10-PCS; 2020-02-05)
DX: D57.00 Hb-SS disease with crisis, unspecified (principal); K55.059 Acute (reversible) ischemia of intestine, part and extent unspecified; N17.0 Acute kidney failure with tubular necrosis; B34.3 Parvovirus infection, unspecified; D61.818 Other pancytopenia; E87.2 Acidosis; K92.1 Melena; K21.9 Gastro-esophageal reflux disease without esophagitis; I12.9 Hypertensive chronic kidney disease with stage 1 through stage 4 chronic kidney disease, or unspecified chronic kidney disease; E11.22 Type 2 diabetes mellitus with diabetic chronic kidney disease; N18.9 Chronic kidney disease, unspecified; D75.89 Other specified diseases of blood and blood-forming organs; R16.0 Hepatomegaly, not elsewhere classified; E83.111 Hemochromatosis due to repeated red blood cell transfusions; I95.9 Hypotension, unspecified; R00.0 Tachycardia, unspecified; E87.5 Hyperkalemia; I46.9 Cardiac arrest, cause unspecified; Z88.1 Allergy status to other antibiotic agents; Z90.49 Acquired absence of other specified parts of digestive tract
CPT/HCPCS: 36415; 36430; 71045; 74018; 80048; 80053; 80076; 81003; 81015; 82248; 82550; 82570; 82728; 82805; 83605; 83690; 83735; 83880; 84100; 84484; 84540; 85025; 85046; 85610; 85730; 86850; 86900; 86901; 86922; 87040; 87635; 92950; 93005; 93010; 94002; 96361; 96374; C1752; J0171; J0692; J1642; J1644; J2270; J3010; J3370; J3490; J7030; J7070; P9016; U0003